=== PATIENT | female | born 1970 | race Caucasian/White ===

== ENCOUNTER 2021-05-03 08:12 | Outpatient (CLI) | payer BC | END 2021-05-03 23:59 | disposition home or self-care (01) | LOC: STAR 08:12 | PROVIDERS: ATTEND Specialist | DX: Z01.811 Encounter for preprocedural respiratory examination (principal); Z01.818 Encounter for other preprocedural examination; N84.0 Polyp of corpus uteri; N83.291 Other ovarian cyst, right side; R93.89 Abnormal findings on diagnostic imaging of other specified body structures ==

== ENCOUNTER 2021-05-09 05:31 | Day surgery (SDC) | payer BC ==
[~2021-05-09] VITALS: Ht 167.6 cm; Wt 59.7 kg
[~2021-05-09 05:31] MED LIST: MULT-449 PO; PARO7.5C PO; VITA1TAB19 PO
[2021-05-09 06:12] VITALS: BP 118/69
[2021-05-09] MEDS ORDERED: CHLORHEXIDINE 15 ML UDC ONE (06:14)
[2021-05-09] MEDS ORDERED: CHLORHEXIDINE 15 ML UDC PO ONE (06:30)
[2021-05-09] MEDS ORDERED: LACTATED RINGERS 1,000 ML IV SCH (06:30)
[2021-05-09] MEDS ORDERED: BUPIVACAINE/PF 0.25% ONE (06:42)
[2021-05-09] MEDS ORDERED: HEPARIN 1,000 UNITS/ML, 10ML ONE (06:43)
[2021-05-09] MEDS ORDERED: INDOCYANINE GREEN 25 MG VIAL ONE (06:43)
[2021-05-09] MEDS ORDERED: EPINEPHRINE 1 MG/ML, 1ML ONE (06:43)
[2021-05-09] MEDS ORDERED: CEFOTETAN PMX 2GM/50ML 50 ML IVPB ONE (07:00)
[2021-05-09] MEDS ORDERED: FENTANYL PF 250 MCG/5ML ONE ×2 (07:11→09:09)
[2021-05-09] MEDS ORDERED: MIDAZOLAM 1 MG/ML, 2ML ONE (07:11)
[2021-05-09] MEDS ORDERED: PROPOFOL 50 ML ONE ×2 (07:54→10:12)
[2021-05-09] MEDS ORDERED: hydrALAzine 20 MG/ML, 1ML IV PRN (08:30)
[2021-05-09] MEDS ORDERED: METHOCARBAMOL 1,000 MG in DEXTROSE 5% 100 ML IV PRN (08:30)
[2021-05-09] MEDS ORDERED: ONDANSETRON 2MG/ML, 2ML IVPush PRN (08:30)
[2021-05-09] MEDS ORDERED: HYDROmorphone 1 MG/ML, 1ML INJ IVPush PRN (08:30)
[2021-05-09] MEDS ORDERED: EPHEDRINE 50 MG/ML, 1ML IVPush PRN (08:30)
[2021-05-09] MEDS ORDERED: HALOPERIDOL 5 MG/ML IV PRN (08:30)
[2021-05-09] MEDS ORDERED: OXYcodone 5 MG/5 ML ORAL.SOL UDC PO PRN (08:30)
[2021-05-09] MEDS ORDERED: LABETALOL 5MG/ML, 20ML IV PRN (08:30)
[2021-05-09] MEDS ORDERED: PROMETHAZINE 25 MG/ML, 1ML IVPush PRN (08:30)
[2021-05-09] MEDS ORDERED: ACETAMINOPHEN 325 MG TABLET PO PRN (08:30)
[2021-05-09] MEDS ORDERED: MEPERIDINE/PF 25MG/0.5ML IVPush PRN (08:30)
[2021-05-09] MEDS ORDERED: LORazepam 2 MG/ML, 1ML IVPush PRN (08:30)
[2021-05-09] MEDS ORDERED: ACETAMINOPHEN 650 MG/20.3 ML UDC ONE (09:41)
[2021-05-09] MEDS ORDERED: OXYcodone 5 MG/5 ML ORAL.SOL UDC ONE (09:42)
[2021-05-09] MEDS ORDERED: FENTANYL PF 100 MCG/2ML ONE (09:42)
[2021-05-09] MEDS: FENTANYL PF 100 MCG/2ML IV PRN ×2 (09:51→09:59)
[2021-05-09] MEDS ORDERED: PROMETHAZINE 12.5 MG SUPP PR ONE (11:00)
[2021-05-09] MEDS ORDERED: PROMETHAZINE 25 MG SUPP PR ONE (11:09)
== END 2021-05-09 14:20 | disposition home or self-care (01) ==
LOC: OUT 05:31
PROVIDERS: ATTEND Specialist
DX: N80.0 Endometriosis of uterus (principal); N80.1 Endometriosis of ovary; D25.9 Leiomyoma of uterus, unspecified; N83.291 Other ovarian cyst, right side; N70.11 Chronic salpingitis; N73.6 Female pelvic peritoneal adhesions (postinfective); Z79.899 Other long term (current) drug therapy
CPT/HCPCS: 36415; 74018; 81025; 86850; 86900; 86923; 88307; J0171; J1644; J2250; J2704; J3010; J7120